=== PATIENT | female | born 1955 | race Caucasian/White ===

== ENCOUNTER 2019-04-12 09:05 | Emergency (ER) | payer MEDICAID, OTHER ==
[~2019-04-12] VITALS: Ht 157.5 cm; Wt 70.0 kg
[~2019-04-12 09:05] MED LIST: DOCU-144 PO; FER325 PO; HYDR-4011 PO; IBUP-1542 PO; LEVO500T48 PO; PANT40TA4 PO; PROP10TA6 PO
[2019-04-12 09:09] VITALS: BP 132/66; PULSE 69; RESP 18; Ht 157.5 cm; Wt 70.0 kg
[2019-04-12] MEDS ORDERED: IBUPROFEN 600 MG TAB PO ONE (10:00)
== END 2019-04-12 12:56 | disposition home or self-care (01) ==
LOC: FTE 09:05
DX: S82.66XA Nondisplaced fracture of lateral malleolus of unspecified fibula, initial encounter for closed fracture (principal); S82.839A Other fracture of upper and lower end of unspecified fibula, initial encounter for closed fracture; W01.0XXA Fall on same level from slipping, tripping and stumbling without subsequent striking against object, initial encounter; Y92.009 Unspecified place in unspecified non-institutional (private) residence as the place of occurrence of the external cause
CPT/HCPCS: 29505; 73590; 73610; 73630; Z7502; Z7610